=== PATIENT | female | born 1990 | race Caucasian/White ===

== ENCOUNTER → 2016-08-22 | Day surgery (SDC) | payer OTHER ==
[~2016-08-22] MED LIST: ACETAMINOPHEN PO; IBUPROFEN PO; PRILOSEC PO
--- NOTE | ~2016-08-22 | OR ---
Unit #: [id number] #: [id number] Patient: SNOW TAN [id number] [address] [id number] MR#: [id number] NAME: SNOW TAN ROOM: Date of Procedure: 08/22/2016 Admission Date: 08/22/2016 Surgeon: Hari Rankin III, M.D. : 1990 Attending Physician: Hari Rankin III, M.D. Primary Care Physician: Robert Wallace M.D. OPERATIVE REPORT PREOPERATIVE DIAGNOSES 1. Rectal bleeding. 2. History of constipation. 3. Reflux. POSTOPERATIVE DIAGNOSIS Small external hemorrhoid. PROCEDURES PERFORMED 1. Esophagogastroduodenoscopy with biopsy. 2. Colonoscopy to cecum. ANESTHESIA MAC. SPECIMENS Antrum was sent for TOREY testing. COMPLICATIONS None apparent. INDICATIONS FOR PROCEDURE This is a 26-year-old lady, who saw my partner, Dr. Dailey with complaints of reflux, severe constipation, and some rectal bleeding. She is here today for upper and lower endoscopy. DESCRIPTION OF PROCEDURE After consent was obtained, the patient was brought to the endoscopy suite and placed in the left lateral decubitus position. We titrated the above sedation and I passed an EGD scope easily into the esophagus under direct visualization. She had normal peristalsis. No evidence of any erosions or esophagitis. I advanced the scope on into the stomach and there were no ulcerations or masses and no gastritis. The pylorus was patent, and the first and second portions of the duodenum appeared normal. I did take a biopsy of the antrum for TOREY testing. The scope was retroflexed. There was no hernia seen. The scope was then straightened and carefully withdrawn. I then performed a rectal exam. She was noted to have a small external hemorrhoid that had mild thrombosis. There were no other masses. The scope was placed within the rectal vault. Air was insufflated. I navigated the scope all the way to the cecum. She had normal mucosa. No evidence of any polyps or masses and no diverticular disease was seen. The scope was retroflexed within the rectum and no other masses were seen. Unit #: [id number] #: [id number] Patient: SNOW TAN The scope was then carefully withdrawn. The patient tolerated the procedure without any problems and returned to the recovery room in stable condition. I will have her call our office on for biopsy results. Otherwise, I would recommend that she be on a high-fiber diet and increase her water intake. Dictated by... Hari Rankin III, M.D. VCL/sunita TD: 08/22/2016 13:05 JOB #: [id number] OPERATIVE REPORT Page 1 of 1 X Hari Rankin III, MD PROCEDURE OPERATIVE NOTE
== END | disposition home or self-care (01) ==
LOC: COPS 09:38
DX: K64.5 Perianal venous thrombosis (principal); K59.09 Other constipation; K21.9 Gastro-esophageal reflux disease without esophagitis; Z88.8 Allergy status to other drugs, medicaments and biological substances; Z91.040 Latex allergy status; Z87.891 Personal history of nicotine dependence
CPT/HCPCS: 84703; 87077; J2250